=== PATIENT | female | born 1960 | race Caucasian/White ===

== ENCOUNTER 2018-01-07 12:24 | Outpatient (CLI) | payer MEDICARE, MEDICAID ==
[~2018-01-07 12:24] MED LIST: ALBU8.5H8 IH; ATOR20TA66 PO; CITA20TA19 PO; HYDR-3972 PO; INSU100V36 SQ; LACT1CAP26 PO; LEVO100T9 PO; NICO-687 TD; NITR0.4T PO; OMEP40CA PO; PREG100C24 PO; RIVA20TA PO
== END 2018-01-07 23:59 | disposition home or self-care (01) ==
LOC: CARD DIAG 12:24
PROVIDERS: ATTEND Internal Medicine Cardiovascular Disease
DX: I35.8 Other nonrheumatic aortic valve disorders (principal); I37.1 Nonrheumatic pulmonary valve insufficiency; J44.9 Chronic obstructive pulmonary disease, unspecified; I10 Essential (primary) hypertension; E11.9 Type 2 diabetes mellitus without complications; F17.200 Nicotine dependence, unspecified, uncomplicated; F10.10 Alcohol abuse, uncomplicated; Z87.891 Personal history of nicotine dependence
CPT/HCPCS: 93306

== ENCOUNTER 2018-02-26 11:16 | Emergency (ER) | payer MEDICARE, MEDICAID ==
[~2018-02-26] VITALS: Ht 165.1 cm; Wt 86.0 kg
[2018-02-26] MEDS ORDERED: HYDROcodone/acetaminophen 10/325mg tab PO ONE (11:30)
[2018-02-26 12:04] LABS: BASOPHILS % (AUTO) 0.7 % (0-1); EOSINOPHILS # (AUTO) 0.2 X10'3 (0-0.9); EOSINOPHILS % (AUTO) 3.1 % (0-6); HEMOGLOBIN 12.4 g/dl (12.0-16.0); LYMPHOCYTES # (AUTO) 1.7 X10'3 (1.1-4.8); LYMPHOCYTES % (AUTO) 28.6 % (21-51); MEAN CORPUSCULAR HEMOGLOBIN 32.8 PG (27.0-31.0); MEAN CORPUSCULAR HGB CONC 33.7 % (33.0-36.5); MEAN CORPUSCULAR VOLUME 97.5 FL (78-98); MEAN PLATELET VOLUME 8.6 FL (7.4-10.4); MONOCYTES # (AUTO) 0.4 X10'3 (0-0.9); MONOCYTES % (AUTO) 6.6 % (2-12); NEUTROPHILS # (AUTO) 3.7 X10'3 (1.8-7.7); PLATELET COUNT 296 X10'3 (140-440); RED BLOOD COUNT 3.79 X10'6 (4.20-5.60); RED CELL DISTRIBUTION WIDTH 13.7 % (11.5-14.5); WHITE BLOOD COUNT 6.1 X10'3 (4.5-11.0)
[2018-02-26 12:25] LABS: MAGNESIUM 2.1 MG/DL (1.5-2.4)
[2018-02-26 12:34] LABS: INR 0.9 INR; PARTIAL THROMBOPLASTIN TIME 29 SECONDS (22-32); PROTHROMBIN TIME 9.7 SECONDS (9.0-12.0)
[2018-02-26 12:40] LABS: ALANINE AMINOTRANSFERASE 83 U/L (12-78); ALBUMIN 3.4 G/DL (3.4-5.0); ALBUMIN/GLOBULIN RATIO 0.8 (1.1-1.5); ALKALINE PHOSPHATASE 100 IU/L (46-116); ANION GAP 7 (8-16); ASPARTATE AMINO TRANSFERASE 52 U/L (10-37); BILIRUBIN,TOTAL 0.3 MG/DL (0.1-1.0); BLOOD UREA NITROGEN 39 MG/DL (7-18); BUN/CREATININE RATIO 34.5 (6.6-38.0); CALCIUM 9.9 MG/DL (8.5-10.1); CHLORIDE 98 MMOL/L (99-107); CREATININE 1.13 MG/DL (0.40-0.90); GLUCOSE 254 MG/DL (70-104); SODIUM 136 MMOL/L (135-145); TOTAL CARBON DIOXIDE 30.9 MMOL/L (24-32); TOTAL PROTEIN 7.5 G/DL (6.4-8.2); eGFR 50 ML/MIN
[2018-02-26 12:41] LABS: POTASSIUM 4.2 MMOL/L (3.5-5.1)
[2018-02-26 13:41] VITALS: BP 162/92
== END 2018-02-26 13:47 | disposition home or self-care (01) ==
LOC: ER 11:17
DX: R07.2 Precordial pain (principal); F11.23 Opioid dependence with withdrawal; E11.42 Type 2 diabetes mellitus with diabetic polyneuropathy; I48.91 Unspecified atrial fibrillation; I25.10 Atherosclerotic heart disease of native coronary artery without angina pectoris; E78.00 Pure hypercholesterolemia, unspecified; I10 Essential (primary) hypertension; I25.2 Old myocardial infarction; J44.9 Chronic obstructive pulmonary disease, unspecified; K21.9 Gastro-esophageal reflux disease without esophagitis; E03.9 Hypothyroidism, unspecified; G89.29 Other chronic pain; F15.90 Other stimulant use, unspecified, uncomplicated; Z86.14 Personal history of Methicillin resistant Staphylococcus aureus infection; Z86.73 Personal history of transient ischemic attack (TIA), and cerebral infarction without residual deficits; Z98.890 Other specified postprocedural states; Z91.013 Allergy to seafood; Z88.5 Allergy status to narcotic agent; Z91.048 Other nonmedicinal substance allergy status; Z79.4 Long term (current) use of insulin; Z79.899 Other long term (current) drug therapy
CPT/HCPCS: 36415; 71045; 80053; 83735; 83880; 84484; 85025; 85610; 85730; 93005; 99285

== ENCOUNTER 2018-05-05 13:40 | Outpatient (CLI) | payer OTHER | END 2018-05-05 23:59 | disposition home or self-care (01) | LOC: CARD DIAG 13:40 | PROVIDERS: ATTEND Internal Medicine Critical Care Medicine | DX: I08.3 Combined rheumatic disorders of mitral, aortic and tricuspid valves (principal); I11.0 Hypertensive heart disease with heart failure; J44.9 Chronic obstructive pulmonary disease, unspecified; I25.2 Old myocardial infarction; E11.9 Type 2 diabetes mellitus without complications; F17.200 Nicotine dependence, unspecified, uncomplicated; Z79.4 Long term (current) use of insulin; Z79.899 Other long term (current) drug therapy | CPT/HCPCS: 93306 ==

== ENCOUNTER 2018-06-23 13:21 | Emergency (ER) | payer MEDICARE, MEDICAID ==
[~2018-06-23] VITALS: Ht 167.6 cm; Wt 129.0 kg
--- NOTE | 2018-06-23 14:31 | NUR ---
TELEPHONE CALL TO [facility]ATION[facility] MANAGER FOR TELEPSYCH CONSULT. CAMERA #2 SET-UP IN ROOM.
--- NOTE | 2018-06-23 14:45 | NUR ---
TC FROM PSYCHIATRIST, DR. ARREDONDO. HX AND REPORT GIVEN TO MD. DOCTOR WILL BE CALLING IN TO ROOM TO CONSULT WITH PATIENT.
--- NOTE | 2018-06-23 15:00 | NUR ---
TRANSPORT HERE TO TAKE PATIENT BACK TO [facility]. DEPARTED PER NEFTALI IN STABLE CONDITION.
--- NOTE | 2018-06-23 15:00 | NUR ---
TELEPSYCH CONSULT IN PROGRESS WITH PSYCHIATRIST.
[2018-06-23] MEDS ORDERED: PREG150C PO (15:07)
[2018-06-23] MEDS ORDERED: OMEP20CA10 PO (15:07)
[2018-06-23] MEDS ORDERED: ATOR-2 PO (15:14)
[2018-06-23] MEDS ORDERED: INSU100I8 SQ (15:14)
[2018-06-23] MEDS ORDERED: LEVO150T8 PO (15:14)
[2018-06-23] MEDS ORDERED: CARV3.122 PO (15:14)
[2018-06-23] MEDS ORDERED: LIDO700A47 TOP (15:14)
[2018-06-23] MEDS ORDERED: FURO40TA4 PO (15:14)
[2018-06-23] MEDS ORDERED: DULO30CA51 PO (15:14)
[2018-06-23] MEDS ORDERED: APIX2.5T PO (15:14)
[2018-06-23] MEDS ORDERED: INSU100V9 SQ (15:14)
[2018-06-23] MEDS ORDERED: PRED10TA23 PO (15:17)
[2018-06-23] MEDS ORDERED: NICO-630 TOP (15:17)
[2018-06-23] MEDS ORDERED: ZITTEL BALM TOP (15:17)
[2018-06-23] MEDS ORDERED: LISI2.5T2 PO (15:17)
[2018-06-23] MEDS ORDERED: ACET-2119 PO ×2 (15:26)
[2018-06-23] MEDS ORDERED: MYC15CR TOP (15:26)
[2018-06-23] MEDS ORDERED: DOCU1ENE3 PR (15:26)
[2018-06-23] MEDS ORDERED: HYDR-3965 PO (15:26)
[2018-06-23] MEDS ORDERED: POLY17PO10 PO (15:29)
[2018-06-23] MEDS ORDERED: ALBU2.5V12 NEB (15:29)
[2018-06-23] MEDS ORDERED: LORA10TA7 PO (15:29)
[2018-06-23] MEDS ORDERED: HYDR50TA65 PO (15:29)
[2018-06-23] MEDS ORDERED: VANCOMYCIN IV (15:49)
[2018-06-23] MEDS ORDERED: PIPE4.5F6 IV (15:49)
[2018-06-23 16:20] VITALS: BP 126/84
--- NOTE | 2018-06-23 16:20 | NUR ---
CALL PLACED TO [facility] TO ARRANGE TRANSPORT
== END 2018-06-23 17:00 ==
LOC: ER 13:22
DX: R45.851 Suicidal ideations (principal); R60.0 Localized edema; F15.90 Other stimulant use, unspecified, uncomplicated; F32.9 Major depressive disorder, single episode, unspecified; E11.42 Type 2 diabetes mellitus with diabetic polyneuropathy; I48.91 Unspecified atrial fibrillation; I25.10 Atherosclerotic heart disease of native coronary artery without angina pectoris; I11.0 Hypertensive heart disease with heart failure; I50.9 Heart failure, unspecified; E78.00 Pure hypercholesterolemia, unspecified; I25.2 Old myocardial infarction; J44.9 Chronic obstructive pulmonary disease, unspecified; K21.9 Gastro-esophageal reflux disease without esophagitis; E03.9 Hypothyroidism, unspecified; G89.29 Other chronic pain; Z86.73 Personal history of transient ischemic attack (TIA), and cerebral infarction without residual deficits; Z95.1 Presence of aortocoronary bypass graft; Z98.890 Other specified postprocedural states; Z95.0 Presence of cardiac pacemaker; Z79.4 Long term (current) use of insulin; Z79.899 Other long term (current) drug therapy; Z91.013 Allergy to seafood; Z88.5 Allergy status to narcotic agent
CPT/HCPCS: 99284